=== PATIENT | male | born 1950 | race Caucasian/White ===

== ENCOUNTER 2016-06-24 06:42 | Day surgery (SDC) | payer OTHER ==
--- NOTE | ~2016-06-24 | EGD ---
EGD REPORT [facility] [address] [place] [address] NAME: ASHWIN BAILEY : [birth year] STATUS : REG [facility]#: [id number] AGE: 66 ADM/REG DATE : 06/24/16 MR#: [id number] REPORT SERV DATE: 06/24/16 DICTATED BY: DUANE DAVIDSON DATE: 06/24/16 REPORT STATUS : Draft TRANSCRIBED BY: [facility] DATE: 06/24/16 [facility] Patient Name: Ashwin Bailey Date of : 1950 Attending MD: DUANE DAVIDSON MD Procedure Date No Time: 06/24/2016 Procedure: Colonoscopy Indications: Rectal bleeding Referring MD: Miki Weber Medicines: Monitored Anesthesia Care Complications: No immediate complications. Procedure: Pre-Anesthesia Assessment: - ASA Grade Assessment: III - A patient with severe systemic disease. After I obtained informed consent, the scope was passed under direct vision. Throughout the procedure, the patient's blood pressure, pulse, and oxygen saturations were monitored continuously. The CF [id number] was introduced through the anus and advanced to the cecum, identified by appendiceal orifice and ileocecal valve. The colonoscopy was performed without difficulty. The patient tolerated the procedure well. The quality of the bowel preparation was good. Findings: The digital rectal exam was normal. Pertinent negatives include no palpable rectal lesions. Multiple diverticula were found in the sigmoid colon. Hemorrhoids were found during retroflexion and were mild. A pedunculated polyp was found in the ascending colon. The polyp was 10 mm in size. The polyp was removed with a hot snare. Piecemeal removal. Resection and retrieval were complete. A sessile polyp was found in the transverse colon. The polyp was 7 mm in size. The polyp was removed with a cold snare. Resection and retrieval were complete. A pedunculated polyp was found in the sigmoid colon. The polyp was 11 mm in size. The polyp was removed with a hot snare. Resection and retrieval were complete. A pedunculated polyp was found in the distal sigmoid colon. The polyp was 15 mm in size. The polyp was removed with a piecemeal technique using a hot snare. Resection and retrieval were complete. Impression: - Diverticulosis in the sigmoid colon. - Hemorrhoids. - One 10 mm polyp in the ascending colon. Resected and EGD REPORT [address] [place]. [address] NAME: ASHWIN BAILEY : [birth year] STATUS : REG [facility]#: [id number] AGE: 66 ADM/REG DATE : 06/24/16 MR#: [id number] REPORT SERV DATE: 06/24/16 DICTATED BY: DUANE DAVIDSON DATE: 06/24/16 REPORT STATUS : Draft TRANSCRIBED BY: [facility] DATE: 06/24/16 retrieved. - One 7 mm polyp in the transverse colon. Resected and retrieved. - One 11 mm polyp in the sigmoid colon. Resected and retrieved. - One 15 mm polyp in the distal sigmoid colon. Resected and retrieved. Recommendation: - Patient has a contact number available for emergencies. The signs and symptoms of potential delayed complications were discussed with the patient. Return to normal activities tomorrow. Written discharge instructions were provided to the patient. - Regular diet. - Continue present medications. - Repeat colonoscopy for surveillance based on pathology results. - Await pathology results. Procedure Code(s): --- Professional --- 14049, Colonoscopy, flexible, proximal to splenic flexure; with removal of tumor(s), polyp(s), or other lesion(s) by snare technique Diagnosis Code(s): --- Professional --- K64.9, Unspecified hemorrhoids K57.30, Diverticulosis of large intestine without perforation or abscess without bleeding D12.5, Benign neoplasm of sigmoid colon D12.3, Benign neoplasm of transverse colon D12.2, Benign neoplasm of ascending colon K62.5, Hemorrhage of anus and rectum CPT copyright 2013 [employer]. All rights reserved. The codes documented in this report are preliminary and upon title investigator review may be revised to meet current compliance requirements. DUANE DAVIDSON MD 06/24/2016 9:20 AM This report has been signed electronically. Number of Addenda: 0 Note Initiated On: 06/24/2016 8:27 AM Scope Withdrawal Time 0 hours 19 minutes 29 seconds
[~2016-06-24 06:42] MED LIST: *UNABLE3; ABILIFY5 PO; ALLEGRA180 PO; AMARYL2 PO; AMARYL4 PO; AMLODIPINE PO; ASAB PO; ASAEC PO; ASCRIPTIN PO; CARVEDILOL PO; CELEXA20 PO; COREG12 PO; COREG25 PO; COREG6 PO; CRESTOR20 MG PO; CRESTOR40 MG PO; CYANO1000T; DIABETA5 PO; FLOMAX4 PO; FORTAMET1000 MG PO; GLUCPH PO; JANUVIA50 PO; LANTUSCART PO; LANTUSCART SC; LEVEMIR SC; LEXAPRO10 PO; LIPITOR PO; LIPITOR20 PO; LIPITOR80 MG PO; MOBIC15 MG PO; MULTIPLE VIT PO; MYRBETRIQ25 MG PO; NEUR300 PO; NITROSTAT0.4 MG PO; NITROSTAT0.4 MG SL; NORCO1 TA1 PO; NORV10 PO; NORV5 PO; NOVOLOG SC; PLAVIX PO; PRIN20 PO; PRIN5 PO; SIN25 PO; SINEMET PO; STARLIX120 PO; TOUJEO SQ; TRADJENTA5 MG PO; ULTRAM50 PO; VESICARE5 PO; VITAMIN B-122500 MCG SL; VITAMIN B12 SL; VITAMIN D31000 UNIT; VITAMIN D31000 UNIT PO; VOLT75 PO; ZIAC5 PO; ZOCOR40 PO; ZOL100 PO
== END 2016-06-24 12:40 | disposition home or self-care (01) ==
LOC: DMU 06:42
PROVIDERS: Internal Medicine Gastroenterology
PROC: 0DBN8ZZ Excision of Sigmoid Colon, Via Natural or Artificial Opening Endoscopic (ICD-10-PCS; 2016-06-24)
PROC: 0DBL8ZZ Excision of Transverse Colon, Via Natural or Artificial Opening Endoscopic (ICD-10-PCS; 2016-06-24)
PROC: 0DBK8ZZ Excision of Ascending Colon, Via Natural or Artificial Opening Endoscopic (ICD-10-PCS; principal; 2016-06-24 08:00)
DX: D12.3 Benign neoplasm of transverse colon (principal); D12.2 Benign neoplasm of ascending colon; D12.5 Benign neoplasm of sigmoid colon; K57.30 Diverticulosis of large intestine without perforation or abscess without bleeding; Z86.73 Personal history of transient ischemic attack (TIA), and cerebral infarction without residual deficits; I25.10 Atherosclerotic heart disease of native coronary artery without angina pectoris; I25.2 Old myocardial infarction; Z95.1 Presence of aortocoronary bypass graft; E11.22 Type 2 diabetes mellitus with diabetic chronic kidney disease; N18.9 Chronic kidney disease, unspecified; K64.9 Unspecified hemorrhoids
CPT/HCPCS: 82962; 88305; J0330; J2405; J3010